=== PATIENT | female | born 1970 | race Caucasian/White ===

== ENCOUNTER 2018-04-09 12:15 | Emergency (ER) | payer SELFPAY ==
--- NOTE | 2018-04-09 14:16 | ER ---
Nurse's Notes [facility] Name: Ольга Meehan Age: 47 yrs Sex: Female : 1970 Arrival Date: 04/09/2018 Time: 12:20 Bed 24 Private MD: None, None Diagnosis: Open wound of abdominal wall without penetration into peritoneal cavity Presentation: 04/09 12:26 Presenting complaint: Patient states: "I had a tummy tuck with skin removal 5 weeks hb ago, and the wound on my right hip is not healing. I am due to have it debrided again tomorrow but I am worried we are not doing the right thing.". Transition of care: patient was not received from another setting of care. Onset of symptoms is unknown. Initial Sepsis Screen: Does the patient meet any 2 criteria? No. Patient's initial sepsis screen is negative. Does the patient have a suspected source of infection? No. Patient's initial sepsis screen is negative. Care prior to arrival: None. 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 - Social history:: Smoking status: Patient/guardian denies using tobacco. Screenin:52 Abuse screen: Denies threats or abuse. Denies injuries from another. Nutritional ed1 screening: No deficits noted. Tuberculosis screening: No symptoms or risk factors identified. Fall Risk None identified. Assessment: 12:52 General: Appears in no apparent distress. Behavior is calm, cooperative. Pain: ed1 Complains of pain in right hip Pain does not radiate. Pain currently is 7 out of 10 on a pain scale. Quality of pain is described as aching, Pain began 2-3 days ago. Is continuous. Neuro: Level of Consciousness is awake, alert, obeys commands, Oriented to person, place, time, situation. Cardiovascular: Denies chest pain, Heart tones S1 S2 present. Respiratory: Airway is patent Respiratory effort is even, unlabored, Respiratory pattern is regular, symmetrical, Breath sounds are clear bilaterally. GI: No signs and/or symptoms were reported involving the gastrointestinal system. : No signs and/or symptoms were reported regarding the genitourinary system. EENT: No signs and/or symptoms were reported regarding the EENT system. Derm: Pt reports wound to right him. Currently dressed. Will assess with provider. Musculoskeletal: Circulation, motion, and sensation intact. Range of motion: intact in all extremities. 12:52 Reassessment: I agree with assessment completed by GIRISH Mack . aa5 13:46 Reassessment: Patient appears in no apparent distress at this time. No changes from ed1 previously documented assessment. Patient and/or family updated on plan of care and expected duration. Pain level reassessed. Patient is alert, oriented x 3, equal unlabored respirations, skin warm/dry/pink. Dr. Alberto and Lizzy at bedside to examine patient. 14:18 Reassessment: Patient appears in no apparent distress at this time. No changes from ed1 previously documented assessment. Patient and/or family updated on plan of care and expected duration. Pain level reassessed. Patient is alert, oriented x 3, equal unlabored respirations, skin warm/dry/pink. Vital Signs: 12:24 BP 124 / 97; Pulse 84; Resp 16; Temp 98.1; Pulse Ox 100% on R/A; Weight 72.57 kg; hb Height 5 ft. 8 in. (172.72 cm); Pain 7/10; 13:46 BP 117 / 83; Pulse 72; Resp 18; Pulse Ox 100% on R/A; Pain 6/10; ed1 14:18 BP 106 / 67; Pulse 83; Resp 17; Temp 98.2(TE); Pulse Ox 100% on R/A; Pain 4/10; ed1 12:24 Body Mass Index 24.33 (72.57 kg, 172.72 cm) ED Course: 12:20 Patient arrived in ED. mr 12:20 None, None is Private Physician. mr 12:23 Arm band placed on. hb 12:28 Triage completed. hb 12:52 Patient has correct armband on for positive identification. Placed in gown. Bed in low ed1 position. Call light in reach. Adult w/ patient. 13:10 Lizzy Monteiro FNP-C is [facility]. kb 13:10 Te Lee MD is Attending Physician. kb 13:31 Martina Valles LVN is Primary Nurse. ed1 14:13 Dressings: wet to dry dressing applied to right hip wound per provider. ed1 14:18 No provider procedures requiring assistance completed. Patient did not have IV access ed1 during this emergency room visit. Administered Medications: No medications were administered Outcome: 14:15 Discharge ordered by . kb 14:18 Discharged to home ambulatory, with friend. ed1 14:18 Condition: good 14:18 Discharge instructions given to patient, Instructed on discharge instructions, follow up and referral plans. wound care, Demonstrated understanding of instructions, follow-up care, wound care. 14:20 Patient left the ED. ed1 Addendum: 04/12/2018 10:40 Addendum: Culture Results: Positive wound culture. Patient was not prescribed i w antibiotics at discharge. Report given to ERVIN for further evaluation and then to inspector raw quartz for follow up with patient. Phone call Attempt #1 pt was able to follow up with surgeon, is due to have another debridement next week. 10:53 Addendum: Other faxed culture reprot to Dr. Mj Vilchis office, ATTN: [place]. i w Signatures: Lizzy Monteiro FNP-C ISOBUTYLENE OPERATOR CHIEF-Ana Wang Emilia Barker, RN RN iw Elida Vidales, STEVEN RN aa5 Martina Valles LVN LVN ed1 Italia Harper RN RN
--- NOTE | 2018-04-09 14:16 | EDPHYS ---
Physician Documentation [facility] Name: Ольга Meehan Age: 47 yrs Sex: Female : 1970 Arrival Date: 04/09/2018 Time: 12:20 Bed 24 Private MD: None, None ED Physician Te Lee HPI: 04/09 14:45 This 47 yrs old Female presents to ER via Ambulatory with complaints of open kb wound. 14:45 Pt had tummy tuck with excess skin removal 6 weeks ago. Has been having wound debrided kb approx once a week due to dying tissue. Came in to get a second opinion on wound healing and appropriate wound care. . Onset: The symptoms/episode began/occurred 6 week(s) ago. Severity of symptoms: At their worst the symptoms were moderate in the emergency department the symptoms are unchanged. The patient has not experienced similar symptoms in the past. The patient has been recently seen by a physician:. 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 - Social history:: Smoking status: Patient/guardian denies using tobacco. ROS: 14:40 Constitutional: Negative for fever, chills, and weight loss, Cardiovascular: Negative kb for chest pain, palpitations, and edema, Respiratory: Negative for shortness of breath, cough, wheezing, and pleuritic chest pain, Back: Negative for injury and pain, : Negative for injury, bleeding, discharge, and swelling, MS/Extremity: Negative for injury and deformity, Neuro: Negative for headache, weakness, numbness, tingling, and seizure. 14:40 Skin: Positive for of the anterior aspect of right lateral abdomen, open wound s/p tummy tuck and skin removal. Exam: 14:40 Constitutional: This is a well developed, well nourished patient who is awake, alert, kb and in no acute distress. Head/Face: Normocephalic, atraumatic. Chest/axilla: Normal chest wall appearance and motion. Nontender with no deformity. No lesions are appreciated. Cardiovascular: Regular rate and rhythm with a normal S1 and S2. No gallops, murmurs, or rubs. Normal PMI, no JVD. No pulse deficits. Respiratory: Lungs have equal breath sounds bilaterally, clear to auscultation and percussion. No rales, rhonchi or wheezes noted. No increased work of breathing, no retractions or nasal flaring. Abdomen/GI: Soft, non-tender, with normal bowel sounds. No distension or tympany. No guarding or rebound. No evidence of tenderness throughout. MS/ Extremity: Pulses equal, no cyanosis. Neurovascular intact. Full, normal range of motion. Neuro: Awake and alert, GCS 15, oriented to person, place, time, and situation. Cranial nerves II-XII grossly intact. Motor strength 5/5 in all extremities. Sensory grossly intact. Cerebellar exam normal. Normal gait. 14:40 Skin: open wound to right lateral abdomen. Fibrous tissue noted. No redness, drainage, warmth or other signs of infection noted. . Vital Signs: 12:24 BP 124 / 97; Pulse 84; Resp 16; Temp 98.1; Pulse Ox 100% on R/A; Weight 72.57 kg; hb Height 5 ft. 8 in. (172.72 cm); Pain 7/10; 13:46 BP 117 / 83; Pulse 72; Resp 18; Pulse Ox 100% on R/A; Pain 6/10; ed1 14:18 BP 106 / 67; Pulse 83; Resp 17; Temp 98.2(TE); Pulse Ox 100% on R/A; Pain 4/10; ed1 12:24 Body Mass Index 24.33 (72.57 kg, 172.72 cm) hb MDM: 13:11 Patient medically screened. kb 14:09 Data reviewed: vital signs, nurses notes. Data interpreted: Pulse oximetry: on room air kb is 100 %. Interpretation: normal. Counseling: I had a detailed discussion with the patient and/or guardian regarding: the historical points, exam findings, and any diagnostic results supporting the discharge/admit diagnosis, the need for outpatient follow up, a plastic surgeon, to return to the emergency department if symptoms worsen or persist or if there are any questions or concerns that arise at home. 14:40 ED course: Educated to keep appt with plastic surgeon tomorrow at 1:30 and discuss a kb plan of care for wound healing. Will return for signs of infection or any other concerns. . 04/09 14:10 Order name: Wound Culture kb Administered Medications: No medications were administered Disposition: 15:02 Co-signature as Attending Physician, Te Lee MD I agree with the assessment and [facility] plan of care. Disposition: 04/09/18 14:15 Discharged to Home. Impression: Open wound of abdominal wall without penetration into peritoneal cavity. - Condition is Stable. - Discharge Instructions: Wound Care, [id number], Wound Packing, Wound Debridement, Care After. - Medication Reconciliation Form, Thank You Letter, Antibiotic Education, Prescription Opioid Use form. - Follow up: Emergency Department; When: As needed; Reason: Worsening of condition. Follow up: Private Physician; When: 2 - 3 days; Reason: Recheck today's complaints, Continuance of care, Re-evaluation by your physician. Signatures: Dispatcher [employer] EDMS Lizzy Monteiro, ANIME DESIGNER-C ANIME DESIGNER-Ckb Te Lee MD MD cha Riggs, Erika, DUMP MOTORMAN DUMP MOTORMAN ed1 Italia Harper RN RN Corrections: (The following items were deleted from the chart) 14:20 14:15 04/09/2018 14:15 Discharged to Home. Impression: Open wound of abdominal wall ed1 without penetration into peritoneal cavity. Condition is Stable. Forms are Medication Reconciliation Form, Thank You Letter, Antibiotic Education, Prescription Opioid Use. Follow up: Emergency Department; When: As needed; Reason: Worsening of condition. Follow up: Private Physician; When: 2 - 3 days; Reason: Recheck today's complaints, Continuance of care, Re-evaluation by your physician. kb
== END 2018-04-09 14:20 | disposition home or self-care (01) ==
LOC: ER 12:15
DX: S31.103A Unspecified open wound of abdominal wall, right lower quadrant without penetration into peritoneal cavity, initial encounter (principal); Z98.890 Other specified postprocedural states
CPT/HCPCS: 87070; 87077; 87186; 87205; 99281